=== PATIENT | male | born 2000 | race Caucasian/White ===

== ENCOUNTER 2021-06-28 13:39 | Emergency (ER) | payer OTHER ==
[2021-06-28 14:02] VITALS: BP 127/76
[2021-06-28] MEDS ORDERED: BACITRACIN ZINC OINT 1 PACKET TOP STA (14:22)
--- NOTE | 2021-06-28 14:26 | ED Physician Documentation ---
History of Present Illness - Stated complaint Stated Complaint: LT FINGER INJ - Chief complaint Chief Complaint: Laceration - Additonal information Additional information: 20-year-old male presents emergency department for evaluation of a left middle finger injury. He was at work with the [employer] when his finger was trapped while attaching a trailer. He has some bruising and bleeding under the distal nail bed with tenderness to the distal fingertip and mild swelling. Patient is right-hand dominant. Tetanus is up-to-date Review of Systems Constitutional: denies: Fever, Chills Eyes: reports: Reviewed and negative Nose: reports: Reviewed and negative Cardiac: reports: Reviewed and negative Respiratory: reports: Reviewed and negative Musculoskeletal: reports: Extremity pain (Left middle finger) PD PAST MEDICAL HISTORY - Present Medications Home Medications: Ambulatory Orders Medication Instructions Recorded Confirmed No Known Home Medications 06/28/21 06/28/21 - Allergies Allergies/Adverse Reactions: Allergies Allergy/AdvReac Type Severity Reaction Status Date / Time No Known Drug Allergies Allergy Verified 06/28/21 14:02 PD ED PE EXPANDED - General General: Alert, No acute distress, Well developed/nourished - Extremities Extremities: Left finger(s) (Distal middle finger tip mildly swollen. Preserved flexion and extension. Radial side of distal nailbed with small amount of hematoma which is bleeding distally and radial at the cuticle) Results - Vitals Vitals: Vital Signs - 24 hr 06/28/21 13:59 Temperature 36.4 C L Heart Rate 75 Respiratory 16 Rate Blood Pressure 127/76 O2 Saturation 99 Oxygen O2 Source Room air - Rads (name of study) finger xr Radiology: Final report received (Tuft fracture distal phalanx) PD MEDICAL DECISION MAKING - ED course Complexity details: reviewed results, re-evaluated patient, d/w patient ED course: 20-year-old male with a distal middle fingertip injury sustained when attaching a trailer at work for the [employer]. X-ray confirms a distal tuft fracture. He does have a less than 15% subungual hematoma of the distal nailbed but the blood is draining freely on the radial side of the cuticle. Patient would not benefit from trephination right now. Will also defer formal closure of possible nailbed laceration given that the nail is acting as a protective barrier. Patient is placed in a finger splint. Saturations 98% distal finger tip./ Brisk cap refill. Emergent return precautions otherwise discussed Departure - Departure Disposition: 01 Home, Self Care Clinical Impression: Closed fracture of tuft of distal phalanx of finger Subungual hematoma of finger Qualifiers: Encounter type: initial encounter Qualified Code(s): S60.10XA - Contusion of unspecified finger with damage to nail, initial encounter Condition: Stable Record reviewed to determine appropriate education?: Yes Instructions: ED Fx Finger Closed Comments: Stefano the x-ray of your finger does show that the distal tip or phalanx of the finger is fractured. This is called a tuft fracture. You also have a small amount of bruising or bleeding under the nail bed. I do recommend that you allow this to continue to drain but the small amount of blood is protecting your nailbed and should not cause the nail To left from the nail bed. 9 in general I recommend that you wash this finger with warm soap and water 2-3 times a day. Apply a thin layer of bacitracin ointment to the cuticle edges. Wear the finger splint to protect the finger and allow the distal fracture to heal. This may take about 4 to 6 weeks. Please follow-up with [facility]. You will need to reduce the amount of mechanical work that you do with this finger while it heals. In general I expect this to heal well. However if you have any significant finger swelling, redness milky drainage or fevers or any concerns of infection then please return to the ER for a second evaluation.
--- NOTE | 2021-06-28 14:29 | XRAY Report ---
PROCEDURE: Finger(s) LT INDICATIONS: crush injury middle finger TECHNIQUE: AP hand, 2 views of the third finger(s) acquired. COMPARISON: None. FINDINGS: BONES: Mildly displaced fracture of the third distal phalanx tuft. SOFT TISSUES: Edema about the fracture site. IMPRESSION: 1.Mildly displaced fractures of the distal phalanx tuft. Reviewed by: Thomas Gee MD on 06/28/2021 2:28 PM PST Approved by: Thomas Gee MD on 06/28/2021 2:28 PM PST Station ID: [id number]
== END 2021-06-28 14:35 | disposition home or self-care (01) ==
LOC: ED 13:39
DX: S62.663A Nondisplaced fracture of distal phalanx of left middle finger, initial encounter for closed fracture (principal); X58.XXXA Exposure to other specified factors, initial encounter; Y93.89 Activity, other specified; Y99.1 Military activity
CPT/HCPCS: 73140; 99283; A9270